=== PATIENT | male | born 1975 | race Caucasian/White ===

== ENCOUNTER 2024-11-02 13:56 | Emergency (ER) | payer OTHER, SELFPAY ==
[2024-11-02 13:57] VITALS: BP 128/80; PULSE 90; RESP 18; TEMP 37.1; O2SAT 99; BMI 28.8
--- NOTE | 2024-11-02 14:00 | RAD_ITS ---
PROCEDURE: ELBOW MIN 3 VIEWS 11/02/2024 REASON FOR EXAM: INJURY TECHNIQUE: Procedure Code: RADEL Modality: DX Procedure: ELBOW MIN 3 VIEWS Laterality: COMPARISON: None. FINDINGS: Bones: No acute bony abnormalities. Joints: No effusion. No dislocation. Soft tissues: Minute radiopaque foreign bodies near the olecranon. RAD/Elbow min 3 Views IMPRESSION: No acute osseous abnormalities. Reading Location: [id number]
--- NOTE | 2024-11-02 14:23 | EX.ED.GENINJ ---
HPI History of Present Illness Chief Complaint: Laceration Detail of Chief Complaint: Laceration dorsal proximal left forearm Informant: patient Onset/Context/Timing Onset: Today and Hours (Less than 1 hour ago) Mechanism/Context: Blunt Injury and Fall Location of pain/injuries: Right forearm Quality of Pain: Throbbing Location: Proximal dorsal left forearm Current Severity: Mild Maximum Severity: Mild Worsened by: Movement and palpation Relieved by: Nothing Associated Symptoms Associated Symptoms: Negative for Parasthesias, Weakness, Loss of function, Inability to ambulate or Loss of consciousness Narrative Narrative: Patient is a 48-year-old [id number] male. He presents after fall while hiking. Sustained a laceration to the dorsal proximal left forearm. He denies paresthesia, anesthesia motors. He denies limited range of motion. Prior similar symptoms: No Recent Illness/Hospitalization: No PFSH PFSH Home Medications ?Medication ?Instructions ?Recorded ?Last Taken ?Type cephalexin 500 mg capsule 500 mg PO Q6 #15 CAPSULES 11/02/24 Unknown Rx Allergy/AdvReac Type Severity Reaction Status Date / Time No Known Allergies Allergy Verified 11/02/24 13:58 ROS ROS ED Constitutional Constitutional ED: Denies chills, fever(s) or subjective Musculoskeletal Musculoskeletal: Denies arthralgias, back pain, myalgias or neck pain Integumentary Reports other Details: Open wound left forearm Neurologic Neurologic: Denies paresthesias or weakness Hematologic/Lymphatic Hematologic/Lymphatic: Denies easy bleeding or easy bruising EXAM Physical Exam Const Vital Signs: 11/02/24 13:57 Temperature 98.7 F Temperature Source Oral Pulse Rate 90 Respiratory Rate 18 Blood Pressure 128/80 H Blood Pressure Mean 96 Pulse Ox 99 Oxygen Delivery Method Room Air Positive well nourished and well developed General Appearance ED: well developed HEENT HEENT Narrative: Normocephalic. Ears normal. atraumatic Eyes PERRL and EOMs intact bilaterally Resp normal respiratory effort Cardio regular rhythm Rate: regular rate Extremity full ROM; Negative for normal to inspection Extremity Narrative: Axillary, median, radial and ulnar function intact. Radial pulses palpable. There is no pain the patient over the lateral or medial epicondyle, olecranon process or radial head with supination pronation. Patient has a gaping laceration which appears contaminated and possibly has dirt and rocks in it. He has full active range of motion of the elbow i.e. flexion extension supination pronation without pain. He has no complaint of wrist or shoulder pain Neuro oriented x3, CN's II-XII intact bilaterally, no focal motor deficits and no sensory deficits noted Gile Coma Scale: document GCS findings Spontaneous Obeys Commands Oriented 15 Sensorium / Orientation: alert Psych mental status grossly normal and thought process normal Skin no rashes or lesions noted, No no wounds and skin turgor normal Skin Narrative: Gaping laceration proximal dorsal surface of left forearm. PROC Procedures Other Procedures Procedure(s): Laceration repair proximal dorsal left forearm. Patient was anesthetized by local infiltration. 5 cc of 1% lidocaine was infiltrated. Wound was irrigated with 500 cc of normal saline. There were multiple small fragments of gravel that was removed. The wound is down to the radius and ulna and the interosseous membrane was visualized. Using 4-0 Ethilon simple interrupted sutures placed. The length of the laceration was 6 cm. Patient will receive cephalexin in department discharged with prescription for cephalexin. He will need a disc given to him since he is not from the area. [place] local [place]. MDM MDM MDM Narrative Medical decision making narrative: Since the wound appears contaminated and is concerned there may be debris in the wound x-ray was obtained to evaluate for fracture as well as foreign body Radiography Chest X-Ray - ED: 2 View and Read by ED Physician (2 view x-ray per my interpretation reveals no fracture, subluxation dislocation there is no anterior posterior fat pad.) Diagnostic Testing: Clinical Impression(s) from Imaging Studies Elbow X-Ray 11/02/24 14:00 IMPRESSION: No acute osseous abnormalities. Reading [facility] Discharge Plan Triage Chief Complaint: Laceration ED Provider: Medhat Cherry Dx/Rx/DC Orders Clinical Impression: Laceration of left forearm with foreign body, Laceration of forearm, left, complicated Instructions: ED Laceration, All Closures Prescriptions: New cephalexin 500 mg capsule 500 mg PO Q6 Qty: 15 0RF Primary Care Provider: NILTON KEENE Referrals: NILTON KEENE [Other] Activity Restrictions/Additional Instructions: Call your orthopedic surgeon on Monday to be seen by Monday for wound check. Take antibiotics until gone. If there is any concern for infection follow-up with either your primary care doctor or the orthopedic surgeon you have seen in the past. If unable to be seen by your doctors recommend going to the emergency room to have the wound opened Print Language: Maldivian Disposition Disposition: Home, Self Care
[2024-11-02] MEDS: Lidocaine 1% (20 ml mdv) 20 ML Vial INFILT (14:30)
[2024-11-02 16:06] VITALS: BP 135/82; PULSE 64; RESP 16; TEMP 36.9; O2SAT 100
== END 2024-11-02 16:10 | disposition home or self-care (01) ==
PROVIDERS: Emergency Provider Emergency Medicine; Visit Provider Emergency Medicine
DX: S51.822A Laceration with foreign body of left forearm, initial encounter (principal); W19.XXXA Unspecified fall, initial encounter; Y92.830 Public park as the place of occurrence of the external cause; Y93.55 Activity, bike riding
CPT/HCPCS: 12002; 73080; 99285